=== PATIENT | female | born 2000 | race Caucasian/White ===

== ENCOUNTER 2024-05-15 12:00 | Outpatient (CLI) | payer BC, SELFPAY ==
[2024-05-15 12:12] VITALS: BP 125/84; PULSE 83
[2024-05-15 12:13] VITALS: PULSE 88; O2SAT 98
--- NOTE | 2024-05-15 12:34 | CRLHL7_ITS ---
For Patients: As a result of the Cures Act, medical imaging exams and procedure reports are released immediately into your electronic medical record. You may view this report before your referring provider. If you have questions, please contact your health care provider. INDICATION: Per patient her pain has decreased since her arrival COMPARISON: Obstetric ultrasound report on 02/25/2024 TECHNIQUE: Real time vora scale imaging of the pelvis was performed FINDINGS: Sonographic imaging demonstrates a single living intrauterine gestation. Fetus demonstrates a regular cardiac rate of 134 beats per minute. Fetus has a breech presentation. The placenta lies anterior without evidence of placenta previa. The area of reported pain is at the right superior aspect of the uterus that demonstrates a region of slightly increased vascularity within the placenta. There is no definitive sonographic evidence of placental abruption or placental accreta. Amniotic fluid volume appears normal. Single deepest vertical pocket: 5.1 cm. The cervix is closed and measures 3.8 cm in length. IMPRESSION: 1. Single live intrauterine with heart rate of 134 beats per minute. 2. The placenta lies anterior without evidence of placenta previa. 3. Area of reported pain is at the right superior aspect of the uterus that demonstrates a region of slightly increased vascularity within the placenta. There is no definitive sonographic evidence of placental abruption or placental accreta. Dictated by Guillermo Bhandari MD @ 05/15/2024 1:49:28 PM (Electronically Signed)
== END 2024-05-15 14:05 | disposition home or self-care (01) ==
LOC: OB OUT 12:03 → OB 12:03
PROVIDERS: Visit Provider Family Medicine
DX: Z34.90 Encounter for supervision of normal pregnancy, unspecified, unspecified trimester (principal)
CPT/HCPCS: 76815; G0463

== ENCOUNTER 2024-07-02 15:33 | Outpatient (CLI) | payer BC, SELFPAY ==
[2024-07-02 15:29] VITALS: TEMP 36.9
[2024-07-02 16:40] LABS: Appearance Urine Clear (Clear); Bilirubin Urine Negative (Negative); Blood Urine Negative (Negative); Color Urine Yellow (Yellow); Glucose Urine Negative (Negative); Ketones Urine Negative (Negative); Leukocyte Esterase Urine Negative (Negative); Nitrite Urine Negative (Negative); Protein Urine Negative (Negative); Urobilinogen Urine 0.2 (0.2-1.0); pH Urine 6.5 (5.0-8.5)
[2024-07-02 16:54] LABS: Amnisure Rom* Negative; Clue Cells No Clue Cells Seen (None Seen); Trichomonas No Trichomonas Seen (None Seen); Yeast No Yeast Seen (None Seen)
--- NOTE | 2024-07-02 18:00 | PC.OBNST ---
NST Note NST Note Start: 07/02/24 15:34 Freq: ONCE Status: Active Protocol: Document 07/02/24 17:52 VMM (Rec: 07/02/24 17:55 VMM Desktop) NST Note 1 Para (# of births) 0 EDC 10/01/24 Gestational Age In Weeks & Days 27 Weeks & 0 Days Patient Presented with Complaint(s) of Other Other Complaints Patient complains of constant yellow discharge for the past 3 days and a feeling of fullness within her vagina. Appropriate for Gestational Age Yes DOM Potter V Date 07/02/24 Appropriate for Gestational Age Yes Max Linda Date 07/02/24 OB NST charge Yes Complete NST Note via Write Note Yes The provider's electronic signature indicates the NST is reactive/appropriate for gestational age. *Note to provider: If an addendum is required, open the patient's chart and click on the note under the Nurse/Allied Health tab.
== END 2024-07-02 17:05 | disposition home or self-care (01) ==
LOC: OB OUT 15:33 → OB 15:34
PROVIDERS: Visit Provider Surgery
DX: O26.892 Other specified pregnancy related conditions, second trimester (principal); N89.8 Other specified noninflammatory disorders of vagina; Z3A.27 27 weeks gestation of pregnancy
CPT/HCPCS: 59025; 81003; 84112; 87210; G0463

== ENCOUNTER 2024-07-30 12:22 | Outpatient (CLI) | payer BC, SELFPAY ==
[2024-07-30] VITALS (12 sets, daily range): BP systolic 115–132; BP diastolic 70–86; PULSE 73–99; RESP 16; TEMP 36.7; O2SAT 97
[2024-07-30] MEDS: METOCLOPRAMIDE 10 MG TABLET PO (12:57)
[2024-07-30 13:04] LABS: Hematocrit 38.5 % (33.0-51.0); Hemoglobin* 12.6 gm/dL (12.0-16.0); Mean Corpuscular HGB Conc 33 gm/dL (32-36); Mean Corpuscular Hemoglobin 30 pg (26-34); Mean Corpuscular Volume 90 fL (80-100); Platelet Count* 314 K/uL (140-440); Red Blood Count 4.26 m/uL (4.00-5.20)
[2024-07-30 13:09] LABS: Slide Review Reflex No
[2024-07-30 13:17] LABS: Creatinine* 0.4 mg/dL (0.5-1.5); Estimated Glomerular Filt Rate 140 ml/min
[2024-07-30 13:18] LABS: Alanine Aminotransferase* 13 U/L (4-35); Aspartate Amino Transferase* 28 U/L (12-35); Blood Urea Nitrogen* 9 mg/dL (5-24)
[2024-07-30 13:20] LABS: Total Protein Urine 15 mg/dL
[2024-07-30 13:22] LABS: Creatinine Urine 14.9 mg/dL; Protein Creatinine Ratio Urine 1.01 (0-0.19)
--- NOTE | 2024-07-30 14:17 | P.OBLDTN_ITS ---
OB - Triage/Final Diagnosis Visit Information Date Seen: 07/30/24 Narrative: The patient is a 24 year old 1 para 0 at 31 weeks gestation by 1st trimester ultrasound, who presents with new onset headache. She has a history of headaches in the past but this one presented differently. She didn't wake up with a headache but it started suddenly about 8 am, about 30 minutes after she woke up. It has been the same since then. No other symptoms other than mild double vision when looking to the right. It is not the worst headache of her life. It is the right side of her head and radiates down to her right neck. Not worse with movement of her head. She saw the chiropractor but that didn't help. Evaluation Laboratory results: Laboratory Tests 07/30/24 07/30/24 Range/Units Unknown 12:51 WBC 12.50 H (4.50-11.00) K/uL RBC 4.26 (4.00-5.20) m/uL Hgb 12.6 (12.0-16.0) gm/dL Hct 38.5 (33.0-51.0) % MCV 90 (80-100) fL MCH 30 (26-34) pg MCHC 33 (32-36) gm/dL Plt Count 314 (140-440) K/uL BUN 9 (5-24) mg/dL Creatinine 0.4 L (0.5-1.5) mg/dL Estimated GFR 140 ml/min AST 28 (12-35) U/L ALT 13 (4-35) U/L Urine Creatinine 14.9 mg/dL Protein/Creatinin Ratio 1.01 H (0-0.19) Urine Total Protein 15 mg/dL Vital signs: Vital Signs - 24 hr 07/30/24 12:35 07/30/24 12:36 07/30/24 13:33 Temperature 98.1 F Pulse Rate 88 73 Respiratory Rate 16 Blood Pressure 120/81 115/70 Pulse Oximetry 97 07/30/24 13:53 07/30/24 14:08 Temperature Pulse Rate 83 81 Respiratory Rate Blood Pressure 132/78 123/80 Pulse Oximetry Comments: General: She is breathing comfortably and appears in no acute distress. She is laying in bed and does not appear uncomfortable. Head: Atraumatic. Nontender to palpation. Eyes: SUZIE. EOMs intact. No nystagmus. Notes slight double vision when looking to the right. Oropharynx: Palate rises symmetrically. Tongue deviation normal. Neck: No lymphadenopathy. ROM normal. No tenderness to palpation. CV: RRR. No murmurs. Resp: Lungs CTA bilaterally. No abnormal breath sounds. Abd: Gravid uterus is soft and nontender. Pelvic: Deferred. Neuro: CN III-XII present bilaterally. Fetus (Single) Fci Variability: Moderate (6-25) Monitor Accelerations: Present Monitor Decelerations: None Final Diagnosis (1) Headache in , antepartum: Status: Acute Problem details: - She did not improve with acetaminophen initially prior to admission. She was given a dose of Reglan with no improvement in symptoms. Preeclampsia labs were done and unremarkable except for a urine protein/creatinine ratio of 1.01 (normal 0-0.2). Her neuro exam was slightly abnormal for double vision when looking to the right. A head CT was ordered and that was negative. - Perinatology was consulted and did not recommend further evaluation for the headaches at this time unless abnormal blood pressures develop but we could try Fioricet or IM Benadryl. They stated she could be discharged with outpatient follow up. We do not have fioricet available. She was given a dose of IM Benadryl and used a heating pad that did not really result in improvement in symptoms but her visual changes resolved. We discussed further evaluation in the hospital including going to the ER for a spinal tap to definitively rule out a subarachnoid hemorrhage. She declined this. We discussed an MRI but she wants to go home and rest and see if that improves her symptoms. We discussed this may be due to a serious cause and may get worse. She understands. Since she now has a normal neurologic exam and has a headache similar to headaches she has had previously, I agreed to discharge home. - She had no elevated blood pressures in the hospital. Her tracing was category 1 through her stay. She did not have any contractions. She was recommended to get a 24 hour urine protein and monitor home blood pressures twice daily. Follow up with primary as scheduled in 3 days and return sooner if any worsening symptoms or neuro symptoms develop. The importance of urgent follow up if any warning signs develop was discussed. - We discussed avoiding pharmacy customer care specialist for neck adjustments as there is a risk of neck dissection with this. We did not evaluate further today since her symptoms did not change with pharmacy customer care specialist.
--- NOTE | 2024-07-30 14:47 | CRLHL7_ITS ---
For Patients: As a result of the Century Cures Act, medical imaging exams and procedure reports are released immediately into your electronic medical record. You may view this report before your referring provider. If you have questions, please contact your health care provider. INDICATION Severe sudden headache COMPARISON None. TECHNIQUE CT of the head without contrast. FINDINGS Brain, ventricles, and extra-axial spaces: No acute intracranial hemorrhage. Ovalle-white differentiation is grossly preserved. Size of the ventricles and sulci appears to be commensurate with age. Bones: No acute osseous findings. Small polyp versus mucous retention cyst in the right maxillary sinus. Visualized mastoid air cells are clear. IMPRESSION No acute intracranial noncontrast CT findings. Please note that all CT scans at this facility use dose modulation, iterative reconstruction, and/or weight-based dosing when appropriate to reduce radiation dose to as low as reasonably achievable. Dictated by Sheldon Negrete MD @ 07/30/2024 3:41:21 PM (Electronically Signed)
[2024-07-30] MEDS: diphenhydrAMINE 50 MG/ML inj 25 MG IM (15:43)
[2024-07-30] MEDS: ACETAMINOPHEN 500 MG TABLET 1000 MG PO (16:19)
--- NOTE | 2024-07-30 16:51 | PC.OBNST ---
NST Note NST Note Start: 07/30/24 12:25 Freq: ONCE Status: Active Protocol: Document 07/30/24 16:50 [facility] (Rec: 07/30/24 16:51 [facility] [id number]) NST Note 1 Para (# of births) 0 EDC 10/01/24 Gestational Age In Weeks & Days 31 Weeks & 0 Days Patient Presented with Complaint(s) of Headache Reactive Yes Appropriate for Gestational Age Yes RN Maite Coffey RN Date 07/30/24 Reactive Yes Appropriate for Gestational Age Yes RN Clarence Sanderson RN Date 07/30/24 OB NST charge Yes Complete NST Note via Write Note Yes The provider's electronic signature indicates the NST is reactive/appropriate for gestational age. *Note to provider: If an addendum is required, open the patient's chart and click on the note under the Nurse/Allied Health tab.
[2024-08-01 11:40] LABS: Total Protein Urine 13 mg/dL
[2024-08-01 11:41] LABS: Creatinine Urine 28.8 mg/dL; Protein Creatinine Ratio Urine 0.45 (0-0.19)
[2024-08-02 03:12] LABS: Collection Time Urine 24 Hours; Total Protein 24 Hour Urine 685.8 mg/Day; Total Volume 24 Hour Urine 5275 ml; Urine Creatinine mg/24 Hour 1519 mg/Day
== END 2024-07-30 16:39 | disposition home or self-care (01) ==
LOC: OB OUT 12:22 → OB 12:24
PROVIDERS: PCP Family Medicine; Visit Provider Surgery
DX: O26.893 Other specified pregnancy related conditions, third trimester (principal); R51.9 Headache, unspecified; Z3A.31 31 weeks gestation of pregnancy
CPT/HCPCS: 36415; 59025; 70450; 82565; 82570; 84156; 84450; 84460; 84520; 85027; G0463; A9270; J1200

== ENCOUNTER 2024-08-05 17:11 | Outpatient (CLI) | payer BC, SELFPAY ==
[2024-08-05 17:27] VITALS: BP 116/73; PULSE 97
[2024-08-05 17:43] VITALS: BP 110/73; PULSE 91; TEMP 36.6
[2024-08-05 17:59] LABS: Hematocrit 35.5 % (33.0-51.0); Hemoglobin* 11.7 gm/dL (12.0-16.0); Mean Corpuscular HGB Conc 33 gm/dL (32-36); Mean Corpuscular Hemoglobin 30 pg (26-34); Mean Corpuscular Volume 90 fL (80-100); Platelet Count* 290 K/uL (140-440); Red Blood Count 3.96 m/uL (4.00-5.20); White Blood Count* 15.59 K/uL (4.50-11.00)
[2024-08-05 18:09] LABS: Slide Review Reflex No
[2024-08-05 18:12] VITALS: BP 111/68; PULSE 90
[2024-08-05 18:21] LABS: Alanine Aminotransferase* 18 U/L (4-35); Aspartate Amino Transferase* 16 U/L (12-35); Blood Urea Nitrogen* 13 mg/dL (5-24); Creatinine* 0.5 mg/dL (0.5-1.5); Estimated Glomerular Filt Rate 133 ml/min
--- NOTE | 2024-08-05 18:54 | PC.OBNST ---
NST Note NST Note Start: 08/05/24 17:19 Freq: ONCE Status: Active Protocol: Document 08/05/24 18:52 [facility] (Rec: 08/05/24 18:52 [facility] Desktop) NST Note 1 Para (# of births) 0 EDC 10/01/24 Gestational Age In Weeks & Days 31 Weeks & 6 Days Patient Presented with Complaint(s) of Other Other Complaints Rule out pre/eclampsia, BP of 120/94 athome Reactive Yes Appropriate for Gestational Age Yes RN Florentin Doyle RN Date 08/05/24 Reactive Yes Appropriate for Gestational Age Yes RN Maite Coffey RN Date 08/05/24 OB NST charge Yes Complete NST Note via Write Note Yes The provider's electronic signature indicates the NST is reactive/appropriate for gestational age. *Note to provider: If an addendum is required, open the patient's chart and click on the note under the Nurse/Allied Health tab.
== END 2024-08-05 18:40 | disposition home or self-care (01) ==
LOC: OB OUT 17:14 → OB 17:15
PROVIDERS: PCP Family Medicine; Visit Provider Family Medicine
DX: O26.893 Other specified pregnancy related conditions, third trimester (principal); R03.0 Elevated blood-pressure reading, without diagnosis of hypertension; Z3A.31 31 weeks gestation of pregnancy
CPT/HCPCS: 36415; 59025; 82565; 84450; 84460; 84520; 85027; G0463

== ENCOUNTER 2024-09-10 10:38 | Inpatient (IN) | payer BC, SELFPAY ==
[2024-09-10] VITALS (13 sets, daily range): BP systolic 108–135; BP diastolic 57–90; PULSE 81–166; RESP 18; TEMP 36.5–36.8; O2SAT 92–97; BMI 39.9
[2024-09-10] MEDS: miSOPROStoL 25 MCG/0.25 TABLET PO ×6 (12:08→21:56)
[2024-09-10 12:38] LABS: Hematocrit 36.5 % (33.0-51.0); Mean Corpuscular HGB Conc 33 gm/dL (32-36); Mean Corpuscular Hemoglobin 30 pg (26-34); Mean Corpuscular Volume 90 fL (80-100); Platelet Count* 271 K/uL (140-440); Red Blood Count 4.07 m/uL (4.00-5.20); White Blood Count* 13.46 K/uL (4.50-11.00)
[2024-09-10 12:46] LABS: Slide Review Reflex No
[2024-09-10 12:54] LABS: Alanine Aminotransferase* 12 U/L (4-35); Aspartate Amino Transferase* 19 U/L (12-35); Creatinine* 0.4 mg/dL (0.5-1.5); Estimated Glomerular Filt Rate 140 ml/min
[2024-09-10 12:55] LABS: Blood Urea Nitrogen* 13 mg/dL (5-24)
[2024-09-10 13:13] LABS: Basophils Absolute Auto 0.02 K/uL (0.00-0.30); Basophils Percent Auto 0.2 % (0.0-3.0); Eosinophils Absolute Auto 0.09 K/uL (0.00-0.50); Eosinophils Percent Auto 0.7 % (0.0-7.0); Immature Granulocytes Abs Auto 0.23 K/uL (0.00-0.30); Immature Granulocytes Pct Auto 1.8 %; Lymphocytes Percent Auto 13.9 % (20-44); Monocytes Percent Auto 4.9 % (0.0-11.0); Neutrophils Percent Auto 78.5 % (42.0-72.0); RDW Coefficient of Variation % 13.3 % (11.5-15.5)
[2024-09-10 13:26] LABS: Total Protein Urine 11 mg/dL
[2024-09-10 13:36] LABS: Creatinine Urine 88.2 mg/dL; Protein Creatinine Ratio Urine 0.12 (0-0.19)
[2024-09-10] MEDS: ACETAMINOPHEN 500 MG TABLET 1000 MG PO (15:49)
--- NOTE | 2024-09-10 20:14 | PM.OBHPLI ---
OB - H&P: HPI Labor/Induction History of Present Illness Time Seen by Provider: 20:15 Date Seen: 09/10/24 Chief Complaint: The patient is a 24 year old 1 para 0 at 37+0 weeks gestation by LMP, who presents for IOL for pre-eclampsia w/o severe features. Chief complaint: IOL Pre-Eclampsia : 1 Para: 0 Indications for induction: pre-eclampsia Narrative: Yamileth Wiley is a 24 year old female at 37+0 weeks by LMP c/w 8 week ultrasound who presents for IOL for pre-eclampsia without severe features. Pre-eclampsia diagnosed at 33 weeks based on routinely elevated home blood pressures and 24 hour urine pr/cr 0.45 on 08/01/24. No severe range pressures and no severe features. Patient does have history of chronic headaches, and these have continued during . None intractable and improve with tylenol. Today feeling well. Oral cytotec intiated at 1200, has now received 4 doses. Feeling mild cramping. Scant vaginal spotting. History of Present Dating criteria: based on LMP care: good care Ultrasounds: normal 1st trimester US and normal mid trimester US complications: preeclampsia (without severe features) Labs Blood type: A (+) positive Rubella: immune RPR/VDLR: nonreactive GBS status: negative HBsAG: negative Narrative: GCT 129 Hep C neg Review of Systems Status of ROS: Reports: 10 or more systems reviewed and unremarkable except as noted in History and below Meds Home Medications and Allergies Home Medications ?Medication ?Instructions ?Recorded ?Confirmed ?Type vits,calcium 91-iron 28 pkg PO 07/02/24 History mg-folic 975 mcg-dha 200 mg oral pack ( + DHA) sertraline 50 mg tablet 50 mg PO DAILY 07/02/24 09/10/24 History Allergies Allergy/AdvReac Type Severity Reaction Status Date / Time fructose Allergy Mild Uncoded 07/02/24 15:50 OB - H&P: Exam Physical Exam: Vital signs: Temp Pulse BP Pulse Ox 97.7 F 82 129/75 96 09/10/24 18:30 09/10/24 19:30 09/10/24 19:30 09/10/24 18:30 Narrative: General appearance: Well-appearing adult female. Alert, oriented and appropriate. Sitting up in hospital bed. HEENT: EOMI, no conjunctival injection or discharge. MMM. Neck: Supple. CV: RRR, no rubs, murmurs or extra heart sounds. Pulm: CTAB, no wheezes, rales or rhonchi. Abdomen: Gravid. MSK: Moving all extremities. Ext: Warm and well-perfused. No LE edema. Skin: No rashes appreciated over exposed skin. Neuro: Grossly normal strength and sensation. No focal deficits. Psych: Normal affect. Detailed Labor and Delivery Exam: Dilation (cm): 1 Effacement (%): 70 Cervix position: mid Consistency: soft Fetus (Single): Station: -2 Amniotic Membrane Status: intact Heart Rate Baseline: 150 Monitor Accelerations: Present Monitor Decelerations: None Penitentiary Variability: Moderate (6-25) OB - Results Labs Labs: Short CBC 09/10/24 09/10/24 09/10/24 Range/Units 12:28 12:28 12:28 WBC 13.46 H Cancelled (4.50-11.00) K/uL Hgb 12.0 Cancelled (12.0-16.0) gm/dL Hct 36.5 (33.0-51.0) % Plt Count (140-440) K/uL 09/10/24 09/10/24 Range/Units 12:28 12:28 WBC (4.50-11.00) K/uL Hgb (12.0-16.0) gm/dL Hct Cancelled (33.0-51.0) % Plt Count 271 Cancelled (140-440) K/uL BMP 09/10/24 12:28 BUN 13 Creatinine 0.4 L Liver Function 09/10/24 Range/Units 12:28 AST 19 (12-35) U/L ALT 12 (4-35) U/L OB - Problem Based A/P Additional Plan (1) Term : Status: Acute Plan: - Cytotec per protocol for cervical ripening. Now s/p 4 doses. Plan 6 doses, then likely transition to IV pitocin - GBS negative - FHT category I - Patient may have epidural upon request - Anticipate vaginal delivery (2) Preeclampsia: Problem details: Dx at 33 weeks. No severe features. Admission pre-E labs WNL. Status: Acute Plan: - Continue to monitor closely - Repeat pre-E labs q 24 hours
[2024-09-10] MEDS: MORPHINE 10 MG/ML inj IM (21:52)
[2024-09-10] MEDS: hydrOXYzine pamoate 25 MG CAPSULE 100 MG PO (21:53)
[2024-09-10] MEDS: LACTATED RINGERS 1000 ML 1,000 ML 500 ML IV (23:58)
[2024-09-11] VITALS (67 sets, daily range): BP systolic 95–146; BP diastolic 49–86; PULSE 71–120; RESP 16–18; TEMP 36.6–37.2; O2SAT 90–99
[2024-09-11] MEDS: ROPIVACAINE 0.2 % PF 10 ML INJ 20 MG EPIDURAL (00:45)
[2024-09-11] MEDS: LIDOCAINE 2% (PF) 5 ML VIAL EPIDURAL (00:45)
[2024-09-11] MEDS: ROPIVACAINE 0.2% 100 ml 100 ML 12 MG EPIDURAL (00:48)
[2024-09-11] MEDS: PHENYLEPHRINE 100 MCG/ML SYRINGE IVP ×4 (00:51→02:31)
--- NOTE | 2024-09-11 00:51 | PM.ANBPRC ---
PFSH PFSH Social History What is your current living situation?: I presently have a place to live Problems where you live: no known problems In the past 12 months, utilities in danger of being shut off: no In the past 12 mos, have been you worried that your food would run out before you had money to buy more?: never true In the past 12 mos, the food you bought just didn't last and you didn't have money to buy more?: never true Smoking Status: Never smoker How often does anyone, including family, friends and others, physically hurt you: never How often does anyone, including family, friends and others, insult or talk down to you: never How often does anyone, including family, friends and others, threaten you with harm: never How often does anyone, including family, friends and others, scream or curse at you: never Meds Home Medications and Allergies Home Medications ?Medication ?Instructions ?Recorded ?Confirmed ?Type vits,calcium 91-iron 28 pkg PO 07/02/24 History mg-folic 975 mcg-dha 200 mg oral pack ( + DHA) sertraline 50 mg tablet 50 mg PO DAILY 07/02/24 09/10/24 History Allergies Allergy/AdvReac Type Severity Reaction Status Date / Time fructose Allergy Mild Uncoded 07/02/24 15:50 Results Labs Labs: Laboratory Results - last 24 hr 09/10/24 09/10/24 09/10/24 12:28 12:28 12:28 WBC 13.46 H Cancelled Corrected WBC Cancelled RBC 4.07 Cancelled Hgb 12.0 Hct MCV MCH MCHC RDW Coeff of [place] Plt Count Neut % (Auto) Lymph % (Auto) [place] % (Auto) Eos % (Auto) Baso % (Auto) Neut # (Auto) Lymph # (Auto) [place] # (Auto) Eos # (Auto) Baso # (Auto) Abs Immat Gran (auto) Imm/Tot Granulo (auto) BUN Creatinine Estimated GFR AST ALT Urine Creatinine Protein/Creatinin Ratio Urine Total Protein Blood Type Antibody Screen 09/10/24 09/10/24 09/10/24 12:28 12:28 12:28 WBC Corrected WBC RBC Hgb Cancelled Hct 36.5 Cancelled MCV 90 Cancelled MCH 30 MCHC RDW Coeff of [place] Plt Count Neut % (Auto) Lymph % (Auto) [place] % (Auto) Eos % (Auto) Baso % (Auto) Neut # (Auto) Lymph # (Auto) [place] # (Auto) Eos # (Auto) Baso # (Auto) Abs Immat Gran (auto) Imm/Tot Granulo (auto) BUN Creatinine Estimated GFR AST ALT Urine Creatinine Protein/Creatinin Ratio Urine Total Protein Blood Type Antibody Screen 09/10/24 09/10/24 09/10/24 12:28 12:28 12:28 WBC Corrected WBC RBC Hgb Hct MCV MCH Cancelled MCHC 33 Cancelled RDW Coeff of [place] 13.3 Cancelled Plt Count 271 Neut % (Auto) Lymph % (Auto) [place] % (Auto) Eos % (Auto) Baso % (Auto) Neut # (Auto) Lymph # (Auto) [place] # (Auto) Eos # (Auto) Baso # (Auto) Abs Immat Gran (auto) Imm/Tot Granulo (auto) BUN Creatinine Estimated GFR AST ALT Urine Creatinine Protein/Creatinin Ratio Urine Total Protein Blood Type Antibody Screen 09/10/24 09/10/24 09/10/24 12:28 12:28 12:28 WBC Corrected WBC RBC Hgb Hct MCV MCH MCHC RDW Coeff of [place] Plt Count Cancelled Neut % (Auto) 78.5 H Cancelled Lymph % (Auto) 13.9 L Cancelled [place] % (Auto) 4.9 Eos % (Auto) Baso % (Auto) Neut # (Auto) Lymph # (Auto) [place] # (Auto) Eos # (Auto) Baso # (Auto) Abs Immat Gran (auto) Imm/Tot Granulo (auto) BUN Creatinine Estimated GFR AST ALT Urine Creatinine Protein/Creatinin Ratio Urine Total Protein Blood Type Antibody Screen 09/10/24 09/10/24 09/10/24 12:28 12:28 12:28 WBC Corrected WBC RBC Hgb Hct MCV MCH MCHC RDW Coeff of [place] Plt Count Neut % (Auto) Lymph % (Auto) [place] % (Auto) Cancelled Eos % (Auto) 0.7 Cancelled Baso % (Auto) 0.2 Cancelled Neut # (Auto) 10.60 H Lymph # (Auto) [place] # (Auto) Eos # (Auto) Baso # (Auto) Abs Immat Gran (auto) Imm/Tot Granulo (auto) BUN Creatinine Estimated GFR AST ALT Urine Creatinine Protein/Creatinin Ratio Urine Total Protein Blood Type Antibody Screen 09/10/24 09/10/24 09/10/24 12:28 12:28 12:28 WBC Corrected WBC RBC Hgb Hct MCV MCH MCHC RDW Coeff of [place] Plt Count Neut % (Auto) Lymph % (Auto) [place] % (Auto) Eos % (Auto) Baso % (Auto) Neut # (Auto) Cancelled Lymph # (Auto) 1.90 Cancelled [place] # (Auto) 0.70 Cancelled Eos # (Auto) 0.09 Baso # (Auto) Abs Immat Gran (auto) Imm/Tot Granulo (auto) BUN Creatinine Estimated GFR AST ALT Urine Creatinine Protein/Creatinin Ratio Urine Total Protein Blood Type Antibody Screen 09/10/24 09/10/24 09/10/24 12:28 12:28 12:28 WBC Corrected WBC RBC Hgb Hct MCV MCH MCHC RDW Coeff of [place] Plt Count Neut % (Auto) Lymph % (Auto) [place] % (Auto) Eos % (Auto) Baso % (Auto) Neut # (Auto) Lymph # (Auto) [place] # (Auto) Eos # (Auto) Cancelled Baso # (Auto) 0.02 Cancelled Abs Immat Gran (auto) 0.23 Cancelled Imm/Tot Granulo (auto) 1.8 BUN Creatinine Estimated GFR AST ALT Urine Creatinine Protein/Creatinin Ratio Urine Total Protein Blood Type Antibody Screen 09/10/24 09/10/24 12:28 Unknown WBC Corrected WBC RBC Hgb Hct MCV MCH MCHC RDW Coeff of [place] Plt Count Neut % (Auto) Lymph % (Auto) [place] % (Auto) Eos % (Auto) Baso % (Auto) Neut # (Auto) Lymph # (Auto) [place] # (Auto) Eos # (Auto) Baso # (Auto) Abs Immat Gran (auto) Imm/Tot Granulo (auto) Cancelled BUN 13 Creatinine 0.4 L Estimated GFR 140 AST 19 ALT 12 Urine Creatinine 88.2 Protein/Creatinin Ratio 0.12 Urine Total Protein 11 Blood Type A Positive Antibody Screen NEGATIVE Vital Signs Vital Signs: Last Vital Signs Temp 98.2 F 09/10/24 23:33 Pulse 92 09/11/24 00:50 Resp 18 09/10/24 23:33 BP 95/50 L 09/11/24 00:50 Pulse Ox 96 11/26/24 18:30 Weight: 110.677 kg Height: 166.37 cm Anesthesia Procedures Epidural Insertion Patient Location: OB Start Time: 23:50 Stop Time: 00:52 Start Date: 09/10/24 Stop Date: 09/11/24 Reason for Block: procedure for pain Patient Position: sitting Performed By: Jae Espino Preanesthetic Checklist: IV checked, risks and benefits discussed, surgical consent, monitors and equipment checked, pre-op evaluation, timeout performed and anesthesia consent Prep: chlorhexidine gluconate Monitoring: blood pressure monitoring, continuous pulse oximetry and heart rate Approach: midline Vertebral Space: lumbar (1-5) Needle Type: Tuohy needle Injection Technique: continuous catheter Needle gauge: 17 Needle Length (cm): 10 cm Needle Insertion Depth (cm): 9 Catheter Gauge: 19 Catheter Type: multi-orifice Catheter at skin depth (cm): 15 Test Dose Result: negative and lidocaine 1.5% with epinephrine 1 to 200,000
[2024-09-11] MEDS: LACTATED RINGERS 1000 ML 1,000 ML 1200 ML IV (01:01)
[2024-09-11] MEDS: ONDANSETRON 2 MG/ML inj 4 MG IV (03:53)
[2024-09-11] MEDS: OXYTOCIN 30 unit/500 ML in NS 30 UNIT/500 ML BAG 300 UNIT IVPB (04:50)
--- NOTE | 2024-09-11 05:17 | W.PM.VAGDE_ITS ---
OB Procedure Vag Delivery Mother Details Mother Details: The patient is a 24 year-old, 1, Para 0, admitted on 09/10/24 at 37.0 Days gestation for IOL for pre-eclampsia without severe features. Cervix was 1/50/-2 on admission. Patient received oral cytotec per protocol x 6 doses. She had onset of regular, painful contractions. SROM occurred at 2327 for clear fluid. Single, prolonged deceleration occurred at 2328, lasting 3-4 minutes. Resolved with repositioning. Patient requested epidural, placed at 0045 with good effect. Found to be complete at 0356. Pushing started 0410. Vigorous male delivered over an intact perineum at 0447. There was a loose nuchal cord that was delivered through. Infant was placed on maternal chest. Cord was cut and clamped after 60 seconds. Placenta delivered spontaneously at 0457. Appeared complete and 3 vessel. Exam revealed third degree perineal laceration. REFERENCE TEST CLERK, Dr. Ortega, was consulted for repair. See her documentation. : 1 Para: 0 Weeks Gestation: 37.1 Admission Date: 09/10/24 Additional Details Amniotic Membrane Status: SROM Amniotic Membrane Rupture Date: 09/10/24 Amniotic Membrane Rupture Time: 23:27 Amniotic Membrane Fluid Description: Clear Analgesia/Anesthesia Type: Epidural Waterbirth: No Intrapartal Events: Labor Induction Induction Method: per misoprostol protocol Labor Onset: 00:45 Complete: 03:56 Pushin:10 Heart: heart tones during second stage were category II. Variables with pushing, rapid recovery between contractions. Delivery Details Delivery Date: 09/11/24 Delivery Time: 04:47 Route of delivery: Gender: Male Infant Viability: Alive; Heart Rate Present Position at Delivery: OA Delivery Details: Delivered over intact perineum via spontaneous vaginal delivery. Infant was placed on maternal abdomen.? Cord was clamped and cut after a 30-60 second delay. Nose and mouth were bulb suctioned.? weight pending. 1 Minute Interval Total Score: 7 5 Minute Interval Total Score: 7 Additional Details Shoulder Dystocia: No Placenta Delivery Time: 04:52 Placental Delivery Description: Spontaneous Blood Loss: 1,000 Laceration: Perineal - 3rd Degree Episiotomy Description: None Blood Loss Measurement Type: EBL Bakri Used: No Sponge/Need Count Correct: Yes Cord Vessel Description: 3 Vessels and Nuchal Cord (loose) Event Summary Status: Mother and infant were stable after delivery. Disposition: floor
[2024-09-11] MEDS: CEFAZOLIN 2 GM in 0.9 % SODIUM CHLORIDE Mini-bag 100 ML IVPB (05:48)
--- NOTE | 2024-09-11 06:03 | P.OBCN_ITS ---
OB - CN: HPI Date of Consult Date Seen: 09/11/24 Patient: Hawa Patient Consult date: 09/11/24 Requesting Physician: Rachel Aldrich MD Primary Care Provider: Rachel Aldrich MD Consult Narrative Reason for consult: vaginal repair Narrative: The patient is a 24 year old G 1 P 1 at 37 1/7 weeks gestation that was admitted to the Center on 09/10/24 for IOL due to preeclampsia w/o severe features. Patient went on to have a and I was consulted for repair of a third degree perineal laceration. History of Present complications: preeclampsia (without severe features) History History 1 Elective abortions Para 0 Spontaneous abortions Hx # Term Pregnancies Ectopic pregnancies Hx # Pregnancies Multiple births Number of Living Children 0 Labs Blood type: A (+) positive Rubella: immune RPR/VDLR: nonreactive GBS status: negative HBsAG: negative OB Labs: Lab Assessment Start: 09/10/24 10:45 Freq: ONCE Status: Complete Protocol: PC.OBGBS Activity Type Activity Date Activity User E-sign Co-sign Detail Recorded Client Recorded Date Recorded By Document 09/10/24 13:00 ALZ Desktop 09/10/24 13:56 ALZ 09/10/24 13:00 Lab Assessment GBS Status negative GBS Additional Criteria None Is Patient Allergic to Penicillin? No Susceptibility Studies Available? None No Treatment Needed OK Are Labs Available Yes Maternal Blood Type A Maternal RH Factor Positive Evaluate Maternal Rubella Immune Status Immune Hepatitis B Surface Antigen Negative Maternal HIV Status Negative Maternal Syphillis (RPR) Status Negative PFSH PFSH Social History What is your current living situation?: I presently have a place to live Problems where you live: no known problems In the past 12 months, utilities in danger of being shut off: no In the past 12 mos, have been you worried that your food would run out before you had money to buy more?: never true In the past 12 mos, the food you bought just didn't last and you didn't have money to buy more?: never true Smoking Status: Never smoker How often does anyone, including family, friends and others, physically hurt you : never How often does anyone, including family, friends and others, insult or talk down to you: never How often does anyone, including family, friends and others, threaten you with harm: never How often does anyone, including family, friends and others, scream or curse at you: never Meds Home Medications and Allergies Home Medications ?Medication ?Instructions ?Recorded ?Confirmed ?Type vits,calcium 91-iron 28 pkg PO 07/02/24 History mg-folic 975 mcg-dha 200 mg oral pack ( + DHA) sertraline 50 mg tablet 50 mg PO DAILY 07/02/24 09/10/24 History Allergies Allergy/AdvReac Type Severity Reaction Status Date / Time fructose Allergy Mild Uncoded 07/02/24 15:50 OB - H&P: Exam Physical Exam: Vital signs: Temp Pulse Resp BP Pulse Ox 98.8 F 85 16 109/56 L 98 09/11/24 05:22 09/11/24 05:52 09/11/24 05:37 09/11/24 05:52 09/11/24 05:22 Narrative: Upon arrival patient in lithotomy position with epidural anesthesia in place. I was able to evaluate laceration and agree with previous diagnosis of a third degree perineal laceration. 3a. Laceration repaired as follows: Thick vaginal epithelium, a layer of support was made first at the vaginal torn edges with Vicryl 3-0 in an interrupted manner. Then superficial torn fibers of the external anal sphincter identified and with 2 interrupted stitches the ends were brought together in the midline in an end to end approach. Vicryl 3-0 was also utilized. Then starting at the apex of the superficial vaginal mucosal tissue and utilizing Vicryl 3-0 in a continuous interlocking fashion the repair was continued in the usual manner, the superficial transverse perineal muscles were then incorporated and approximated in the midline. Perineal skin approximated with Vicryl 3-0 as well. After this repair, bleeding noticed from the left hymenal vaginal tissue and utilizing a figure of 8 stitch, with same suture hemostasis was achieved. Rectal exam completed and rectal mucosa found intact, no evidence of suture material and adequate sphincter tone. Patient tolerate procedure well, I did recommend to give her 1 dose of 2g IV Ancef during repair. Well contracted uterus. EBL for my part of procedure: 100mL. OB - Results Labs Labs: Short CBC 09/10/24 09/10/24 09/10/24 Range/Units 12:28 12:28 12:28 WBC 13.46 H Cancelled (4.50-11.00) K/uL Hgb 12.0 Cancelled (12.0-16.0) gm/dL Hct 36.5 (33.0-51.0) % Plt Count (140-440) K/uL 09/10/24 09/10/24 Range/Units 12:28 12:28 WBC (4.50-11.00) K/uL Hgb (12.0-16.0) gm/dL Hct Cancelled (33.0-51.0) % Plt Count 271 Cancelled (140-440) K/uL BMP 09/10/24 12:28 BUN 13 Creatinine 0.4 L Liver Function 09/10/24 Range/Units 12:28 AST 19 (12-35) U/L ALT 12 (4-35) U/L OB - CN: A/P Assessment and Plan (1) Term : Status: Acute (2) Preeclampsia: Problem details: Dx at 33 weeks. No severe features. Admission pre-E labs WNL. Status: Acute Plan Repair of a 3a perineal laceration. Recommend stool softeners. Happy to follow up additional concerns as needed.
[2024-09-11] MEDS: IBUPROFEN 600 MG TABLET PO ×3 (06:21→18:28)
[2024-09-11 08:44] LABS: Basophils Percent Auto 0.2 % (0.0-3.0); Eosinophils Percent Auto 0.2 % (0.0-7.0); Hematocrit 29.8 % (33.0-51.0); Hemoglobin* 9.5 gm/dL (12.0-16.0); Lymphocytes Percent Auto 8.7 % (20-44); Mean Corpuscular HGB Conc 32 gm/dL (32-36); Mean Corpuscular Hemoglobin 29 pg (26-34); Mean Corpuscular Volume 91 fL (80-100); Monocytes Percent Auto 4.6 % (0.0-11.0); Neutrophils Percent Auto 85.3 % (42.0-72.0); Platelet Count* 261 K/uL (140-440); RDW Coefficient of Variation % 13.5 % (11.5-15.5); Red Blood Count 3.26 m/uL (4.00-5.20); White Blood Count* 18.69 K/uL (4.50-11.00)
[2024-09-11 08:46] LABS: Slide Review Reflex No
[2024-09-11] MEDS: ACETAMINOPHEN 500 MG TABLET 1000 MG PO ×3 (09:15→21:47)
[2024-09-11] MEDS: DOCUSATE SODIUM 100 MG CAPSULE PO (09:15)
[2024-09-11] MEDS: OXYCODONE 5 MG TABLET PO ×2 (12:59→17:56)
[2024-09-11 17:41] LABS: Hemoglobin* 9.2 gm/dL (12.0-16.0)
[2024-09-11] MEDS: BENZOCAINE/MENTHOL SPRAY 85 GM AEROSOL 1 APPLIC TOPICAL (17:56)
[2024-09-11] MEDS: LACTATED RINGERS 1000 ML 1,000 ML IV (18:03)
--- NOTE | 2024-09-11 20:05 | CRLHL7_ITS ---
For Patients: As a result of the Century Cures Act, medical imaging exams and procedure reports are released immediately into your electronic medical record. You may view this report before your referring provider. If you have questions, please contact your health care provider. INDICATION: , tachycardia. TECHNIQUE: CT chest PE was acquired with 95 cc Isovue 370 IV contrast. COMPARISON: None. FINDINGS: Heart and vasculature: Contrast opacification of the pulmonary arterial tree is suboptimal. No sign of pulmonary embolism to the proximal segmental level. Heart size is normal. Thoracic aorta and pulmonary artery are normal in caliber. Lungs and pleura: Few linear parenchymal bands, likely representing subsegmental atelectasis. Otherwise no acute infiltrates. No suspicious nodules. No pleural effusions, pleural thickening, or pneumothorax. Lymph nodes/mediastinum: No mediastinal, hilar, or axillary adenopathy. Thyroid gland is unremarkable. Chest wall: No masses. Upper abdomen: Status post cholecystectomy. Bones: Unremarkable for age. IMPRESSION: 1. Suboptimal contrast opacification of the pulmonary arteries but without evidence of pulmonary embolism to the proximal segmental level. 2. No acute pulmonary process. Please note that all CT scans at this facility use dose modulation, iterative reconstruction, and/or weight-based dosing when appropriate to reduce radiation dose to as low as reasonably achievable. Dictated by Jamin Blanton MD @ 09/11/2024 9:25:13 PM (Electronically Signed)
[2024-09-11 20:38] LABS: Basophils Percent Auto 0.2 % (0.0-3.0); Eosinophils Percent Auto 0.2 % (0.0-7.0); Hematocrit 28.4 % (33.0-51.0); Hemoglobin* 9.2 gm/dL (12.0-16.0); Immature Granulocytes Pct Auto 1.9 %; Lymphocytes Percent Auto 15.7 % (20-44); Mean Corpuscular HGB Conc 32 gm/dL (32-36); Mean Corpuscular Hemoglobin 30 pg (26-34); Mean Corpuscular Volume 92 fL (80-100); Monocytes Percent Auto 5.5 % (0.0-11.0); Neutrophils Percent Auto 76.5 % (42.0-72.0); Platelet Count* 253 K/uL (140-440); RDW Coefficient of Variation % 13.7 % (11.5-15.5); Red Blood Count 3.08 m/uL (4.00-5.20)
[2024-09-11 20:49] LABS: Chloride* 112 mmol/L (96-114)
[2024-09-11 20:50] LABS: Potassium* 3.5 mmol/L (3.6-5.1); Sodium* 137 mmol/L (135-149)
[2024-09-11 20:52] LABS: Creatinine* 0.5 mg/dL (0.5-1.5); Est. Creatinine Clearance* 153.43; Estimated Glomerular Filt Rate 133 ml/min
[2024-09-11 20:53] LABS: Anion Gap 6 mEq/L (7-15); Blood Urea Nitrogen* 13 mg/dL (5-24); Calcium* 8.6 mg/dL (8.4-10.6); Carbon Dioxide* 19 mmol/L (20-32); Glucose* 168 mg/dL (60-115)
[2024-09-11 20:54] LABS: Slide Review Reflex No
[2024-09-11 21:16] LABS: Magnesium* 1.7 mg/dL (1.5-2.6)
--- NOTE | 2024-09-11 21:33 | P.OBPN_ITS ---
OB - PN:Subj Subjective Date Seen: 09/11/24 Interval history: Pt seen this morning at approx 0800 following syncopal episode. Occurred after standing for first time after delivery. Patient felt dizzy and lightheaded, briefly passed out in the presence of two RNs. Hgb checked following this with Hgb drop to 9.5 mg/dl. Given 500 cc fluid bolus and started on PO iron. As the day progressed, patient felt better - no dizziness, lightheadedness, etc. - but was noted to have tachycardia. Denies chest pain or dyspnea. Eating and drinking well. Having perineal pain from 3rd degree laceration s/p tear, controlled with oxycodone, Tylenol, and ibuprofen. No fevers. Lochia has been appropriate. OB - PN: Obj Exam Physical Exam: Vital signs: Temp Pulse Resp BP Pulse Ox O2 Del Method 98.7 F 115 H 16 113/74 96 Room Air 09/11/24 19:14 09/11/24 19:14 09/11/24 19:14 09/11/24 19:14 09/11/24 15:39 09/11/24 15:39 Narrative: Gen: alert, pleasant, NAD Resp: breathing comfortably on room air, CTA b/l Heart: tachycardia Abd: fundus firm Extremities: trace to 1+ b/l LE pitting edema OB - PN: Obj Data Labs Labs: Laboratory Results - last 24 hr 09/11/24 09/11/24 09/11/24 08:36 17:36 20:33 WBC 18.69 H 16.10 H RBC 3.26 L 3.08 L Hgb 9.5 L 9.2 L 9.2 L Hct 29.8 L 28.4 L MCV 91 92 MCH 29 30 MCHC 32 32 RDW Coeff of Queta 13.5 13.7 Plt Count 261 253 Neut % (Auto) 85.3 H 76.5 H Lymph % (Auto) 8.7 L 15.7 L [place] % (Auto) 4.6 5.5 Eos % (Auto) 0.2 0.2 Baso % (Auto) 0.2 0.2 Neut # (Auto) 15.90 H 12.30 H Lymph # (Auto) 1.60 2.50 [place] # (Auto) 0.90 0.90 Eos # (Auto) 0.00 0.00 Baso # (Auto) 0.00 0.00 Abs Immat Gran (auto) 0.20 0.30 Imm/Tot Granulo (auto) 1.0 1.9 Sodium 137 Potassium 3.5 L Chloride 112 Carbon Dioxide 19 L Anion Gap 6 L BUN 13 Creatinine 0.5 Estimated Creat Clear 153.43 Estimated GFR 133 Glucose 168 H Calcium 8.6 OB - PN: A/P Delivery Assessment and Plan (1) Term : Status: Acute (2) Preeclampsia: Problem details: Dx at 33 weeks. No severe features. Admission pre-E labs WNL. Status: Acute (3) Tachycardia: Status: Acute Assessment and Plan: Tachycardia in the 110s since 0800 on PPD 0. Hgb dropped from 12 mg/dl on admission to 9.5 mg/dl . Stabilized at 9.2 mg/dl. Given additional 1000 cc LR bolus without improvement in HR. EKG obtained that showed S wave in lead I, Q wave in lead III, and inverted T wave in lead III concerning for possible acute right heart strain. CT-PE obtained that was negative for acute PE or other pulmonary findings. BMP notable for mildly low potassium (3.5) - PO replacement ordered with plan for recheck in AM. Magnesium level WNL. Encouraged rest as able along with PO food and fluid intake. will continue to monitor closely for changes in vitals or symptoms that would prompt further workup. Plan day: 0 Plan: routine care
[2024-09-11] MEDS: POTASSIUM CHLORIDE 10 MEQ CAPSULE ER 20 MEQ PO (21:47)
[2024-09-12 02:46] VITALS: BP 106/73; PULSE 102; RESP 18; TEMP 36.8; O2SAT 97
[2024-09-12] MEDS: IBUPROFEN 600 MG TABLET PO ×3 (02:50→17:04)
[2024-09-12 05:56] LABS: Rapid Plasma Reagin (RPR) Non Reactive (Non Reactive)
[2024-09-12] MEDS: ACETAMINOPHEN 500 MG TABLET 1000 MG PO ×3 (06:18→19:23)
[2024-09-12 06:23] LABS: Hemoglobin* 9.3 gm/dL (12.0-16.0)
[2024-09-12 06:34] LABS: Potassium* 4.1 mmol/L (3.6-5.1)
--- NOTE | 2024-09-12 09:00 | P.OBPN_ITS ---
OB - PN:Subj Subjective Time Seen by Provider: 09:00 Date Seen: 09/12/24 Interval history: Patient had syncopal episode on 09/11 following delivery. Started PO iron, given bolus IV fluids. Hemoglobin stabilized at 9.5 Required oxycodone for perineal pain (s/p 3rd degree laceration) Had work up for tachycardia (EKG showed concern for right heart strain, PE study negative). HR improving, now rate 102. She has complaints today of having difficult urinating. She feels she is only having very small volumes and her swelling is worsening. Baby has been formula fed. Mom wants to pump, but hasn't yet. Reporting water resources technical officer told her not to give breast milk after CT contrast. Patient comments OB post-: perineal pain (oxycodone is helpful. ) infant status: bottle Narrative: Feeling ok. Sent baby to RN station overnight and got some good rest. She denies headache, vision changes, RUQ pain. OB - PN: Obj Exam Physical Exam: Vital signs: Temp Pulse Resp BP Pulse Ox O2 Del Method 98.3 F 102 H 18 106/73 97 Room Air 09/12/24 02:46 09/12/24 02:46 09/12/24 02:46 09/12/24 02:46 09/12/24 02:46 09/12/24 02:46 Constitutional: Constitutional: no acute distress Routine HEENT Exam: Head: Present atraumatic and normal inspection ENT: Present mucous membranes moist Routine Neck Exam: Neck: Present full ROM Routine Respiratory Exam: Respiratory: Present CTA bilaterally Routine Cardiovascular Exam: Cardiovascular: Present RRR, S1 and S2; Absent murmur Routine Abdominal Exam: Abdominal: Present normal bowel sounds Fundus: Present firm Routine Neurological Exam: Neurological: Present alert and oriented X3 Routine Psychiatric Exam: Psychiatric: Present normal affect OB - PN: Obj Data Labs Labs: Laboratory Results - last 24 hr 09/10/24 09/11/24 09/11/24 12:28 17:36 18:32 WBC RBC Hgb 9.2 L Hct MCV MCH MCHC RDW Coeff of Queta Plt Count Neut % (Auto) Lymph % (Auto) [place] % (Auto) Eos % (Auto) Baso % (Auto) Neut # (Auto) Lymph # (Auto) [place] # (Auto) Eos # (Auto) Baso # (Auto) Abs Immat Gran (auto) Imm/Tot Granulo (auto) Sodium Potassium Chloride Carbon Dioxide Anion Gap BUN Creatinine Estimated Creat Clear Estimated GFR Glucose Calcium Magnesium 1.7 RPR Screen Non Reactive 09/11/24 09/12/24 20:33 06:13 WBC 16.10 H RBC 3.08 L Hgb 9.2 L 9.3 L Hct 28.4 L MCV 92 MCH 30 MCHC 32 RDW Coeff of Queta 13.7 Plt Count 253 Neut % (Auto) 76.5 H Lymph % (Auto) 15.7 L [place] % (Auto) 5.5 Eos % (Auto) 0.2 Baso % (Auto) 0.2 Neut # (Auto) 12.30 H Lymph # (Auto) 2.50 [place] # (Auto) 0.90 Eos # (Auto) 0.00 Baso # (Auto) 0.00 Abs Immat Gran (auto) 0.30 Imm/Tot Granulo (auto) 1.9 Sodium 137 Potassium 3.5 L 4.1 Chloride 112 Carbon Dioxide 19 L Anion Gap 6 L BUN 13 Creatinine 0.5 Estimated Creat Clear 153.43 Estimated GFR 133 Glucose 168 H Calcium 8.6 Magnesium RPR Screen OB - PN: A/P Delivery Assessment and Plan (1) Term : Status: Acute (2) Preeclampsia: Problem details: Dx at 33 weeks. No severe features. Admission pre-E labs WNL. Status: Acute Assessment and Plan: - recheck labs this evening given increased swelling - ongoing monitoring of bp. - monitor urine output (3) Tachycardia: Problem details: most likely due to volume loss with hemorrhage. PE study normal. Improved. Status: Acute (4) hemorrhage: Problem details: 2/2 3rd degree laceration. Status: Acute Assessment and Plan: - trending hemoglobin, bleeding appropriate (5) Third degree laceration of perineum during delivery, : Problem details: Repaired by coding compliance specialist in the OR. [place] like she wasn't voiding well, but then had good void this morning and feels better Status: Acute Assessment and Plan: - pain management as needed - close monitoring of urination, bladder scan prn Plan day: 1 Plan: routine care
[2024-09-12] MEDS: FERROUS SULFATE 325 MG TABLET PO (09:04)
[2024-09-12] MEDS: DOCUSATE SODIUM 100 MG CAPSULE PO (09:04)
[2024-09-12 09:20] VITALS: BP 116/84; PULSE 87; RESP 18; TEMP 36.6; O2SAT 98
[2024-09-12 12:30] VITALS: BP 103/69; PULSE 99; RESP 18; TEMP 36.9; O2SAT 98
[2024-09-12 16:15] VITALS: BP 115/77; PULSE 115; RESP 18; TEMP 36.8; O2SAT 97
[2024-09-12 16:58] LABS: Hematocrit 29.8 % (33.0-51.0); Hemoglobin* 9.5 gm/dL (12.0-16.0); Mean Corpuscular HGB Conc 32 gm/dL (32-36); Mean Corpuscular Hemoglobin 30 pg (26-34); Mean Corpuscular Volume 93 fL (80-100); Platelet Count* 269 K/uL (140-440); Red Blood Count 3.19 m/uL (4.00-5.20); White Blood Count* 14.16 K/uL (4.50-11.00)
[2024-09-12 17:12] LABS: Aspartate Amino Transferase* 17 U/L (12-35); Creatinine* 0.5 mg/dL (0.5-1.5); Est. Creatinine Clearance* 153.43; Estimated Glomerular Filt Rate 133 ml/min
[2024-09-12 17:13] LABS: Alanine Aminotransferase* 12 U/L (4-35); Blood Urea Nitrogen* 9 mg/dL (5-24)
[2024-09-12 17:21] LABS: Slide Review Reflex No
[2024-09-12 20:37] VITALS: BP 113/77; PULSE 97; RESP 16; TEMP 37; O2SAT 98
[2024-09-12 23:20] VITALS: BP 116/72; PULSE 112; RESP 14; TEMP 37.2; O2SAT 100
[2024-09-13] MEDS: IBUPROFEN 600 MG TABLET PO (03:01)
[2024-09-13 05:00] VITALS: BP 120/84; PULSE 102; RESP 18; TEMP 36.6; O2SAT 98
--- NOTE | 2024-09-13 07:47 | P.DS_ITS ---
DS: Providers Provider Time Seen by Provider: 07:47 Date Seen: 09/13/24 Date of admission: 09/10/24 10:38 Primary care physician: Rachel Aldrich MD Admitting Clinician: Rachel Aldrich MD Consults: HEALTH AND SAFETY ADVISOR consulted for 3rd degree laceration. Attending Physician on discharge: Ashly Hagan MD Date of Discharge: 09/13/24 DS: Diagnosis Discharge Diagnosis (1) Third degree laceration of perineum during delivery, : Status: Acute Problem details: Repaired by automobile tester in the OR. Healing well. Required oxycodone for 2 days, now on tylenol/motrin. (2) hemorrhage: Status: Acute Problem details: 2/2 3rd degree laceration. Hemoglobin stable at 9.5. Starting oral iron. Did not require blood transfusion. (3) Tachycardia: Status: Acute Problem details: most likely due to volume loss with hemorrhage. PE study normal. Improved. Pulse 90 at discharge and feeling well. (4) Preeclampsia: Status: Acute Problem details: Dx at 33 weeks. No severe features. PreE labs during admission were within normal limits and remained normal during hospitalization. BP did not require antihypertensive medication. (5) (normal spontaneous vaginal delivery): Status: Acute Exam Const: Vital Signs, click to edit/add: Vital Signs - 24 hr 09/12/24 09:20 09/12/24 12:30 09/12/24 16:15 Temperature 97.9 F 98.5 F 98.3 F Pulse Rate [Blood Pressure Cuff] 87 99 115 H Respiratory Rate 18 18 18 Blood Pressure [Ri ght Arm] 116/84 103/69 115/77 Pulse Oximetry 98 98 97 Oxygen Delivery Me thod Room Air Room Air Room Air 09/12/24 20:37 09/12/24 23:20 09/13/24 05:00 Temperature 98.6 F 98.9 F 97.8 F Pulse Rate [Blood Pressure Cuff] 97 112 H 102 H Respiratory Rate 16 14 18 Blood Pressure [Ri ght Arm] 113/77 116/72 120/84 Pulse Oximetry 98 100 98 Oxygen Delivery Me thod Room Air Room Air Room Air Documenting provider has reviewed patient's vital signs: yes Common normals: no apparent distress and oriented x3 HENMT: Common normals: normocephalic Head and scalp: normocephalic Resp: Common normals: normal respiratory effort Cardio: Common normals: regular rate, regular rhythm and peripheral pulses 2+ throughout Rate: regular rate Rhythm: regular rhythm Heart sounds: no murmurs Peripheral pulses: pulses 2+ throughout GI: Common normals: soft to palpation Palpation: soft Other: fundus firm, midline, 2 below umbilicus Extremity: Other: lower extremity edema bilaterally, no redness/warmth/tenderness Neuro: Common normals: oriented x3 OB - DS: Summary Hospital Course Hospital Course: The patient is a 24 year old G 1 P 1 at 37.1 weeks gestation that was admitted to the Center on 09/10/24 for IOL for preeclampsia. She had an vaginal delivery complicated by hemorrhage 2/2 3rd degree laceration. She delivered a viable male . She is bottle feeding (pumping/bottling). the patient has done well. Peripartum Data Infant delivery method: Vaginal Laceration description: Perineal - 3rd Degree Procedures: repair of 3rd degree laceration by Dr. Homer Richardson. complications: other (tachycardia, now resolved. ) [place] Gender: Male Infant Discharge Plan: Home Status at Discharge Functional status at discharge: independent ambulation Overall status at discharge: patient is back to baseline Time Spent with Patient Time attestation: Total time spent providing and/or coordinating discharge services: Time spent: Greater than 30 minutes Discharge Plan Discharge Disposition: Home, Self-Care Date of Admission: 09/10/24 10:38 Attending Provider on Discharge: Ashly Hagan Primary Care Provider: Rachel Aldrich I Condition: Improved Anticipated Discharge Date/Time: 09/13/24 10:00 Discharge Medications: New ferrous sulfate 325 mg (65 mg iron) Tablet 325 mg PO DAILYWM Qty: 90 0RF Continued + DHA 28 mg iron- 975 mcg-200 mg combo pack PO Discontinued sertraline 50 mg tablet 50 mg PO DAILY Discharge Orders: Discharge Order (Routine); Ordered 09/13/24 Ordered By: Ashly Hagan Patient Education: OB High Blood Pressure DC, OB Vaginal/Breast Feeding Activity Level: Activity as Tolerated Activity Detail: Pelvic rest x 6 weeks, nothing in the vagina. Discharge Diet: Regular Diet Detail: low salt diet to improve swelling, High iron diet to improve anemia Follow Up Appointments: Rachel Aldrich MD [Primary Care Provider] - Forms: [employer] Info Instructions Discharge Comments: Please continue tylenol and ibuprofen as needed for pain c ontrol. please continue to monitor daily blood pressures. Call with any symptoms of preeclampsia or blood pressures >140/90. Continue stool softeners for first few weeks while your laceration heals Follow up in 6 weeks for check with Dr. Aldrich. Sooner with concerns
[2024-09-13 08:28] VITALS: BP 124/84; PULSE 90; RESP 14; TEMP 36.4; O2SAT 97
[2024-09-13] MEDS: DOCUSATE SODIUM 100 MG CAPSULE PO (08:37)
[2024-09-13] MEDS: FERROUS SULFATE 325 MG TABLET PO (08:38)
== END 2024-09-13 10:40 | disposition home or self-care (01) | DRG 560 ==
PROVIDERS: Family Medicine; Admitting Provider Family Medicine; PCP Family Medicine; Visit Provider Family Medicine
DX: O14.04 Mild to moderate pre-eclampsia, complicating childbirth (principal); O70.21 Third degree perineal laceration during delivery, IIIa; O72.1 Other immediate postpartum hemorrhage; O99.893 Other specified diseases and conditions complicating puerperium; R00.0 Tachycardia, unspecified; R42 Dizziness and giddiness; Z37.0 Single live birth; Z3A.37 37 weeks gestation of pregnancy
CPT/HCPCS: 01967; 36415; 59200; 71275; 80048; 82565; 82570; 83615; 83735; 84132; 84156; 84450; 84460; 84520; 85018; 85025; 85027; 86592; 86850; 86900; 86901; 88307; 93005; A9270; J0690; J2270; J2371; J2405; J2795; J7120; Q9967